=== PATIENT | female | born 1990 | race African-American/Black ===

== ENCOUNTER 2021-04-01 17:49 | Emergency (ER) | payer SELFPAY ==
[2021-04-01] MEDS ORDERED: Ketorolac Tromethamine 30 MG/ML VIAL ONE (18:35)
[2021-04-01] MEDS ORDERED: Cyclobenzaprine 10 MG TAB ONE (18:35)
== END 2021-04-01 18:56 | disposition home or self-care (01) ==
LOC: ERS 17:49
DX: S39.012A Strain of muscle, fascia and tendon of lower back, initial encounter (principal); X58.XXXA Exposure to other specified factors, initial encounter
CPT/HCPCS: 96372; 99283; J1885